=== PATIENT | female | born 1990 | race Hispanic/Latino ===

== ENCOUNTER 2016-07-24 19:22 | Emergency (ER) | payer OTHER, SELFPAY ==
[2016-07-24] MEDS ORDERED: HYDROcodone/Acetaminophen 10/325 mg Tablet ONE (19:51)
--- NOTE | 2016-07-24 20:17 | RAD ---
THREE VIEWS OF THE RIGHT WRIST 07/24/16 COMPARISON: None. HISTORY: Right wrist pain after trauma. FINDINGS: Three views of the right wrist shows no evidence of acute fracture or dislocation. No degenerative c hanges are seen. No soft tissue swelling. IMPRESSION: Unremarkable exam. POS: [facility]
--- NOTE | 2016-07-24 20:20 | RAD ---
TWO VIEWS OF THE RIGHT FOREARM 07/24/16 COMPARISON: None. HISTORY: Right forearm pain after trauma. FINDINGS: Two views of the right forearm shows no evidence of acute fracture or dislocation. Mild soft tissue swelling is seen. No degenerative changes are present. IMPRESSION: No evidence of acute osseous abnormality. POS: [facility]
--- NOTE | 2016-07-26 12:23 | RAD ---
THREE VIEWS OF THE RIGHT HAND 07/24/16 COMPARISON: None. HISTORY: Right hand pain after trauma. FINDINGS: Three views of the right hand shows no evidence of acute fracture or dislocation. No soft tissue swe lling is seen. No degenerative changes are present. IMPRESSION: No evidence of acute osseous abnormality. POS: [facility]
== END 2016-07-24 20:32 | disposition home or self-care (01) ==
LOC: MADERS 19:22
DX: S60.211A Contusion of right wrist, initial encounter (principal); S00.83XA Contusion of other part of head, initial encounter; F32.9 Major depressive disorder, single episode, unspecified; F41.9 Anxiety disorder, unspecified; Y04.8XXA Assault by other bodily force, initial encounter

== ENCOUNTER 2017-07-16 04:40 | Emergency (ER) | payer OTHER ==
[2017-07-16] MEDS ORDERED: Ibuprofen 800 MG TAB ONE (05:17)
[2017-07-16] MEDS ORDERED: Ondansetron ODT 4 MG TAB ONE (05:17)
[2017-07-16] MEDS ORDERED: Fentanyl 100 MCG/2 ML VIAL ONE (05:17)
--- NOTE | 2017-07-16 09:58 | RAD ---
LEFT SHOULDER 3 VIEWS: Date: 07/16/17 PROVIDED CLINICAL HISTORY: Left shoulder pain status post injury. FINDINGS: There is a comminuted, mildly displaced fracture of the greater tuberosity. No additional fracture is evident. The glenohumeral relationship appears grossly normal. The visualized left lung field appear s clear. IMPRESSION: Comminuted, mildly displaced greater tuberosity fracture. POS: [facility]
== END 2017-07-16 05:39 | disposition home or self-care (01) ==
LOC: MADERS 04:40
DX: S42.202A Unspecified fracture of upper end of left humerus, initial encounter for closed fracture (principal); F32.9 Major depressive disorder, single episode, unspecified; F41.9 Anxiety disorder, unspecified; F90.9 Attention-deficit hyperactivity disorder, unspecified type; Z79.899 Other long term (current) drug therapy; W22.8XXA Striking against or struck by other objects, initial encounter
CPT/HCPCS: 96372; J3010; Q0162